=== PATIENT | male | born 1970 | race Caucasian/White ===

== ENCOUNTER → 2021-03-20 | Day surgery (SDC) | payer BC ==
[~2021-03-20] MED LIST: FENTANYL CITRATE/PF 100MCG/2 ML INJ ONE; MIDAZOLAM HCL 2 MG/2 ML VIAL ONE; MULTIVITAMINS1 EAC6 PO; OR PHACO EYE KIT ONE; PREOP PHACO EYE KIT ONE
[2021-03-20 11:20] VITALS: BP 130/85
== END | disposition home or self-care (01) ==
LOC: OR 08:48
PROVIDERS: ATTEND Ophthalmology
DX: H25.11 Age-related nuclear cataract, right eye (principal); G47.33 Obstructive sleep apnea (adult) (pediatric); E66.9 Obesity, unspecified; Z01.812 Encounter for preprocedural laboratory examination
CPT/HCPCS: 66984; 93005; J2250; J3010

== ENCOUNTER → 2021-04-03 | Day surgery (SDC) | payer BC ==
[2021-04-03 11:12] VITALS: BP 133/86
== END | disposition home or self-care (01) ==
LOC: OR 08:26
PROVIDERS: ATTEND Ophthalmology
DX: H25.12 Age-related nuclear cataract, left eye (principal); G47.33 Obstructive sleep apnea (adult) (pediatric); E66.9 Obesity, unspecified
CPT/HCPCS: J2250; J3010